=== PATIENT | female | born 1975 | race Two or more races ===

== ENCOUNTER 2022-02-09 13:21 | Emergency (ER) | payer OTHER ==
[~2022-02-09] VITALS: Ht 154.9 cm; Wt 45.8 kg
== END 2022-02-09 16:24 | disposition home or self-care (01) ==
LOC: ER 13:21
DX: S99.921A Unspecified injury of right foot, initial encounter (principal); W22.8XXA Striking against or struck by other objects, initial encounter; Y93.89 Activity, other specified; Y92.012 Bathroom of single-family (private) house as the place of occurrence of the external cause; Z88.6 Allergy status to analgesic agent